=== PATIENT | female | born 1970 | race Caucasian/White ===

== ENCOUNTER 2018-11-30 | Inpatient (IN) | payer OTHER ==
[2018-11-30] VITALS (7 sets, daily range): BP systolic 95–120; BP diastolic 43–77
--- NOTE | ~2018-11-30 | PR ---
[place], [place] PROGRESS NOTE NAME: [facility] CHAVES [facility] [id number] UNIT #: [id number] ROOM: 520 DOCTOR: MAURICIO HENRY MD BIRTHDATE: [birth year] DOS: 12/01/2018 CARDIOLOGY PROGRESS NOTE SUBJECTIVE: The patient was seen at her bedside today. She is a 48-year-old woman who has a history of a factor V Leiden mutation. She has had 2 previous myocardial infarctions and has had stents placed in the past. She has also had a history of DVT. She chronically takes rivaroxaban 10 mg daily because of her factor V mutation. She states lately she has had increased leg pains as well as increased pleuritic chest pains. She presented to the hospital where a D-dimer was high at 0.93. A V/Q scan was indeterminant. Lower extremity venous ultrasound is negative. Her symptoms, however, are consistent with pulmonary embolism, and therefore, she is being treated with high dose rivaroxaban for PE management. She states that she still has pleuritic chest pain despite being on rivaroxaban for the last few days. She denies exertional pain, but states that she does not do much either. PHYSICAL EXAMINATION: VITAL SIGNS: Her pulse is 89 and regular, blood pressure is 124/64. She is afebrile. NECK: Supple. She has no jugular distention. Carotids are full. LUNGS: Respirations are unlabored. Chest is clear. She does have pleuritic pain when she takes a deep breath. HEART: Has a regular rhythm with an S4 gallop. ABDOMEN: Benign. EXTREMITIES: Showed no cyanosis or edema and she had no palpable cords. IMPRESSION: 1. History of coronary artery disease. 2. Atypical chest pain, myocardial infarction ruled out. 3. Factor V Leiden mutation. 4. Equivocal presentation for pulmonary embolism. Symptoms are not suggestive of an acute myocardial infarction. PLAN: I think that as soon as the CAT scan machine has been repaired that she should undergo a CT angiogram of the chest to help determine if she does have a recurrent or multiple pulmonary emboli. If that is negative, musculoskeletal pain is most likely, but given her history, she probably should have a stress test. We thank the hospitalist physicians for asking our advice regarding her care. [place], [place] PROGRESS NOTE NAME: REYNA CHAVES UNIT #: [id number] ROOM: [facility] DOCTOR: MAURICIO HENRY MD BIRTHDATE: [birth year] MAURICIO HENRY MD CM:PNTRANS [id number] MAURICIO HENRY MD 12/03/18 1359 interface
--- NOTE | ~2018-11-30 | CON ---
[place], [place] REPORT OF CONSULTATION NAME: REYNA CHAVES UNIT #: [id number] ROOM: 520 DOCTOR: JONY FREEMAN MD BIRTHDATE: [birth year] DOS: 11/30/2018 CARDIOLOGY CONSULTATION REASON FOR CONSULTATION: Chest pain. HISTORY OF PRESENT ILLNESS: The patient is a 48-year-old patient with history of coronary artery disease, factor V mutation, non-morbid obesity, presented to the Emergency Room for chest pain. Around 10:00 in the morning, she noted to have midsternal chest pain, which radiated towards her back and also to the left arm. The pain is a dull pain, which is worse with deep inspirations, but no associated nausea or diaphoresis. The patient took some sublingual nitro at home without any relief. She has history of myocardial infarction in the past and had a stent in 2016 in [place]. She takes Xarelto 10 mg for her factor V mutation with hypercoagulable state. She denies any fever and chills. No hemoptysis, no palpitation, no PND, no orthopnea. No nausea, vomiting, diarrhea. No bladder or bowel symptoms, no neurologic symptoms, no visual symptoms. She did complain of some discomfort in the right calf area. REVIEW OF SYSTEMS: Review of the 10 systems negative except as described above. PAST MEDICAL HISTORY: 1. Coronary artery disease with myocardial infarction in 2013 as well as 2016 with a stent in 2016. 2. Factor V mutation with hypercoagulable state. 3. Non-morbid obesity. 4. Asthma. PAST SURGICAL HISTORY: History of mastectomy, history of coronary stents. SOCIAL HISTORY: The patient does not drink alcohol, does not use drugs. The patient does smoke. FAMILY HISTORY: Mother has diabetes, hypertension, seizures; father from myocardial infarction. ALLERGIES: THE PATIENT IS ALLERGIC TO PENICILLIN AND IBUPROFEN AND TORADOL. HOME MEDICATIONS: Reviewed. Pertinent cardiac medications include aspirin, lisinopril, metoprolol, Xarelto and Ranexa. PHYSICAL EXAMINATION: VITAL SIGNS: Blood pressure 99/70, pulse 81, respiratory rate 20. Weight 87.6 kilos, BMI 34.2. GENERAL: Alert, comfortable, in no acute distress. HEENT: Pupils are round and equal. No jaundice. Tongue is moist and pharynx clear. CHEST: Symmetrical. Mild tenderness in the left upper chest area. LUNGS: Good air entry, clear to auscultation. HEART: Regular rhythm, no S3, no palpable thrills. [place], [place] REPORT OF CONSULTATION NAME: REYNA CHAVES UNIT #: [id number] ROOM: [facility] DOCTOR: JONY FREEMAN MD BIRTHDATE: [birth year] ABDOMEN: Benign, nontender. Bowel sounds normal. EXTREMITIES: Showed no edema. Distal pulses palpable. The patient has some mild discomfort in the right calf area, but no edema. SKIN: Warm and dry. No cyanosis, no clubbing. RECTAL: Deferred. GENITOURINARY: Deferred. NEUROLOGIC: The patient is alert, oriented. No focal neurologic deficit. LABORATORIES, IMAGING STUDIES AND EKG: Reviewed. EKG showed normal sinus rhythm with inferolateral nondiagnostic Q-waves. White cell count 11.3, hemoglobin 11.5, platelet 262, potassium 3.7, BUN 15, creatinine 1.22, and the troponins are negative x 3. The V/Q scan showed a moderate probability for pulmonary emboli. IMPRESSION: 1. Chest pain, atypical, myocardial infarction ruled out. 2. Coronary artery disease with history of myocardial infarction in 2013, myocardial infarction in 2016, status post 2.4 x 25 mm Promus drug-eluting stent to the right coronary artery in [place]. 3. Factor V mutation. 4. Intermediate probability V/Q scan for pulmonary emboli. 5. Hypertension. 6. Non-morbid obesity. 7. Tobacco use. RECOMMENDATIONS: 1. Her chest pains are atypical, pleuritic and myocardial infarction ruled out. EKG showed no acute ischemic changes. 2. V/Q scan showed intermediate probability for pulmonary emboli. Her Xarelto dose was changed to acute PE does. 3. Continue her home cardiac medications including aspirin, beta sofia, statin. 4. No further cardiac testing at this time. 5. Risk factor modification was discussed. 6. There is no family at bedside at the time of my examination. JONY FREEMAN MD CM:CONSTR:REPORT OF CONSULTATION [id number] 12/01/18 0251 interface
--- NOTE | ~2018-11-30 | EKG ---
[place], [place] ELECTROCARDIOGRAM REPORT NAME: REYNA CHAVES UNIT #: [id number] ROOM: 520 DOCTOR: RAJAN DRAFT REPORT BIRTHDATE: [birth year] 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
--- NOTE | ~2018-11-30 | EKG ---
[place], [place] ELECTROCARDIOGRAM REPORT NAME: REYNA CHAVES UNIT #: [id number] ROOM: 520 DOCTOR: RAJAN DRAFT REPORT BIRTHDATE: [birth year] [facility] Test Date: 2018-11-30 Test Time: 09:18:14 Pat Name: REYNA CHAVES Department: Room: 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
--- NOTE | ~2018-11-30 | EKG ---
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
--- NOTE | ~2018-11-30 | EKG ---
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
[2018-11-30] MEDS ORDERED: NITROSTAT0.4 MG SL (03:57)
[2018-11-30] MEDS ORDERED: SINGULAIR10 M1 PO (03:58)
[2018-11-30] MEDS ORDERED: ATORVASTATIN CA40 M1 PO (03:58)
[2018-11-30] MEDS ORDERED: ASPIRIN CHEWABL81 MG PO (03:58)
[2018-11-30 03:59] LABS: BASO % 0.4 % (0.0-1.0); EOS # 0.2 10*3/uL (0.0-0.4); EOS % 1.8 % (1.0-4.0); HEMOGLOBIN 11.5 g/dl (12.0-16.0); LYMPH # 3.9 10*3/uL (1.3-4.4); MEAN CELL VOLUME 82.4 fl (81.0-99.0); MEAN CORPUSCULAR HGB 26.3 pg (27.0-31.0); MEAN CORPUSCULAR HGB CONC 31.9 g/dl (33.0-37.0); MEAN PLATELET VOLUME 9.8 fl (9.6-12.3); MONO # 0.6 10*3/uL (0.1-1.0); MONO % 5.1 % (3.0-9.0); NEUT # 6.5 10*3/uL (2.3-7.9); NEUT % 57.3 % (47.0-73.0); PLATELET COUNT AUTOMATED 262 10*3/uL (130-400); RED BLOOD COUNT 4.37 10*6/uL (4.10-5.10); WHITE BLOOD COUNT 11.3 10*3/uL (4.8-10.8)
[2018-11-30] MEDS ORDERED: VITAMIN D5000 UNI1 PO (03:59)
[2018-11-30] MEDS ORDERED: NEURONTIN300 MG PO (03:59)
[2018-11-30] MEDS ORDERED: ZYPREXA5 M1 PO (04:00)
[2018-11-30] MEDS ORDERED: RANEXA500 M1 PO (04:00)
[2018-11-30] MEDS ORDERED: VISTARIL25 MG PO (04:00)
[2018-11-30] MEDS ORDERED: XARELTO10 MG PO (04:01)
[2018-11-30 04:09] LABS: ACT PARTIAL THROMBO TIME 23.5 SECONDS (20.8-31.5); INTERNATIONAL NORM RATIO 0.9 (2.0-3.5)
[2018-11-30 04:17] LABS: ALBUMIN 3.6 gm/dl (3.1-4.5); ALKALINE PHOSPHATASE 154 U/L (45-117); BUN 15 mg/dl (7-24); CHLORIDE 109 mmol/L (98-107); CREATININE 1.22 mg/dL (0.55-1.02); POTASSIUM 3.7 mmol/L (3.5-5.1); SGOT/AST 17 IU/L (3-35); SGPT/ALT 37 U/L (12-78); SODIUM 141 mmol/L (136-145); TOTAL PROTEIN 7.7 gm/dL (6.4-8.2)
[2018-11-30 04:19] LABS: TROPONIN I < 0.015 ng/ml (<0.045)
--- NOTE | 2018-11-30 04:50 | NUR ---
PT REQUESTS MORE PAIN MEDICATION.
[2018-11-30] MEDS ORDERED: MELATONIN3 MG PO (05:31)
[2018-11-30] MEDS ORDERED: MINIPRESS2 M1 PO (05:33)
--- NOTE | 2018-11-30 06:04 | NUR ---
A 48, admitted to , under the services of LINDSEY Lora DO with a diagnosis of CHEST PAIN. Chief complaint is CHEST PAIN. Patient arrived via bed from ER. Monitor applied. Initial assessment completed. Vital signs taken and recorded. LINDSEY LORA DO notified of admission to the unit. Orders received. See assessment for past medical history, medications and allergies. Patient and/or family oriented to unit. [facility]. Clothing/patient valuable form completed. NANY SULLIVAN
[2018-11-30] MEDS ORDERED: CYMBALTA60 MG PO (06:21)
--- NOTE | 2018-11-30 06:29 | NUR ---
MEDICATED WITH MS 2 MG SLOW IV PUSH FOR C/O MID-STERNAL CHEST PAIN RATED A 9/10.
--- NOTE | 2018-11-30 06:53 | NUR ---
MED REC UPDATED PER PATIENT AND MED CLAIM HISTORY
--- NOTE | 2018-11-30 06:57 | NUR ---
DR. HENRY PAGED AT THIS TIME
--- NOTE | 2018-11-30 09:03 | NUR ---
INFORMED THAT HOME MEDS NEED RECONCILED. SAID HE WOULD LOOK AT THEM. ALSO INFORMED HIM OF PTs PAIN RATED 8.5/10 DESPITE MORPHINE AT 0630. SAID HE WILL BE IN TO SEE THE PT SOON. NORCO GIVEN AT THIS TIME. WILL MONITOR FOR EFFECTIVENESS.
--- NOTE | 2018-11-30 09:29 | NUR ---
PT DOWN FOR LUNG SCAN.
--- NOTE | 2018-11-30 10:18 | NUR ---
PT BACK TO ROOM FROM TEST.
--- NOTE | 2018-11-30 10:49 | NUR ---
AND AWARE OF VQ SCAN RESULTS.
--- NOTE | 2018-11-30 10:53 | NUR ---
MIDSTERNAL PAIN RETURNED. PER PT, PAIN IS 8/10. MORPHINE GIVEN. CALL LIGHT IN REACH.
--- NOTE | 2018-11-30 11:36 | NUR ---
MORPHINE EFFECTIVE FOR COMPLAINTS PER PT.
--- NOTE | 2018-11-30 11:56 | NUR ---
INFORMATION PRINTED OUT AND GIVEN TO PT REGARDING PULMONARY EMBOLISM PER HER REQUEST.
--- NOTE | 2018-11-30 12:27 | NUR ---
PRN NORCO GIVEN FOR C/O PAIN RATED 6/10 TO MIDSTERNAL AREA. CALL LIGHT IN REACH.
--- NOTE | 2018-11-30 13:23 | NUR ---
NORCO EFFECTIVE PER PT, PAIN RATED 2/10. CALL LIGHT IN REACH.
[2018-11-30] MEDS ORDERED: TOPROL XL25 MG PO (15:01)
--- NOTE | 2018-11-30 16:24 | NUR ---
MORPHINE GIVEN FOR C/O CHEST PAIN RATED 10/10. CALL LIGHT IN REACH. VSS.
--- NOTE | 2018-11-30 17:01 | NUR ---
PER PT, MORPHINE WAS EFFECTIVE. PAIN RATED 5/10. CALL LIGHT IN REACH.
--- NOTE | 2018-11-30 17:50 | NUR ---
PT C/O LEFT KNEE PAIN/CRAMPING. STATES IT IS MORE SWOLLEN THAN EARLIER TODAY. ICE PACK PROVIDED FOR COMFORT. NOTIFIED. SAID HE WOULD COME TO SEE PT.
--- NOTE | 2018-11-30 18:29 | NUR ---
NORCO GIVEN FOR C/O KNEE AND CHEST PAIN RATED 7/10. CALL LIGHT IN REACH. VSS.
--- NOTE | 2018-11-30 20:43 | NUR ---
PRN MORPHINE GIVEN ORDERED FOR PATIENT C/O CHEST PAIN RATING A 8/10. PATIENT TOLERATED WELL, CALL LIGHT IS WITHIN REACH. WILL MONITOR EFFECT.
[2018-12-01] VITALS: BP 136/75
[2018-12-01 07:49] LABS: BASO % 0.5 % (0.0-1.0); EOS # 0.3 10*3/uL (0.0-0.4); EOS % 3.9 % (1.0-4.0); HEMATOCRIT 38.1 % (37.0-47.0); HEMOGLOBIN 11.9 g/dl (12.0-16.0); LYMPH # 2.7 10*3/uL (1.3-4.4); LYMPH % 34.2 % (27.0-41.0); MEAN CELL VOLUME 83.4 fl (81.0-99.0); MEAN CORPUSCULAR HGB CONC 31.2 g/dl (33.0-37.0); MEAN PLATELET VOLUME 9.9 fl (9.6-12.3); MONO # 0.5 10*3/uL (0.1-1.0); NEUT # 4.2 10*3/uL (2.3-7.9); NEUT % 54.1 % (47.0-73.0); PLATELET COUNT AUTOMATED 238 10*3/uL (130-400); RED BLOOD COUNT 4.57 10*6/uL (4.10-5.10); WHITE BLOOD COUNT 7.7 10*3/uL (4.8-10.8)
[2018-12-01 08:00] VITALS: BP 124/64
[2018-12-01 08:03] LABS: ACT PARTIAL THROMBO TIME 26.4 SECONDS (20.8-31.5)
[2018-12-01 08:20] LABS: BUN 14 mg/dl (7-24); CHLORIDE 106 mmol/L (98-107); CHOLESTEROL 127 mg/dL (<200); CREATININE 0.99 mg/dL (0.55-1.02); PHOSPHOROUS 4.2 mg/dL (2.5-4.9); POTASSIUM 4.1 mmol/L (3.5-5.1); SODIUM 137 mmol/L (136-145); TRIGLYCERIDES 221 mg/dl (<150); VLDL CHOLESTEROL 44 mg/dL (6-40)
[2018-12-01 08:28] LABS: HDL CHOLESTEROL 30 mg/dl (40-60); LDL CHOLESTEROL 53 mg/dL (9-159)
[2018-12-01 10:11] LABS: VITAMIN D, 25-HYDROXY 43.6 ng/mL (30-100)
[2018-12-01 12:00] VITALS: BP 105/62
--- NOTE | 2018-12-01 12:01 | NUR ---
Preparation Plant Supervisor in to talk to patient. Patient states lives at HOME with ALONE. There are SEVERAL steps in the home. Physician: NONE AT THIS TIME Pharmacy: [facility] Home health services: NONE Patient's level of ADLs: INDEPENDENT Patient has working utilities: YES DME: [facility] Follow-up physician's appointment after d/c: WILL BE MADE BY HOSPITALIST NURSE DIRECTOR ON DISCHARGE Does patient want to access PORTAL?: NO Discharge plan PT STATES SHE LIVES ALONE AND IS WORKING WITH HER COMPUTER FORENSIC SPECIALIST FROM INSURANCE TO GET AIDS FOR ASSISTANCE AT HOME. STATES EVERYTHING IS IN THE WORKS AND SHE HAS NO OTHER NEEDS AT THIS TIME. WILL CONTINUE TO FOLLOW.. KILEY MEADOWS
[2018-12-01 16:00] VITALS: BP 113/74
[2018-12-01 20:00] VITALS: BP 107/61
--- NOTE | 2018-12-01 23:40 | NUR ---
2200 MEDICATIONS GIVEN AT THIS TIME WELL PRN NORCO AND MORPHINE FOR CHEST PAIN RATING A 10/10. PATIENT TOLERATED WELL, CALL LIGHT IS WITHIN REACH.
[2018-12-02] VITALS: BP 123/67
--- NOTE | 2018-12-02 01:58 | NUR ---
PATIENT IS SLEEPING WITH EASY AND REGULAR RESPERS ON ROOM AIR. CALL LIGHT IS WITHIN REACH.
--- NOTE | 2018-12-02 03:12 | NUR ---
SPOKE WITH DR. SIMON REGARDING [facility] BEAT RUN OF [facility], SEE NEW ORDERS.
--- NOTE | 2018-12-02 03:18 | NUR ---
SPOKE WITH JAMAL REGARDING CARDIOLOGY CONSULT. AWAITING CALL BACK.
--- NOTE | 2018-12-02 03:21 | NUR ---
SPOKE WITH DR. FREEMAN REGARDING 21 BEAT RUN OF VTA. INFORMED HIM OF CTA CHEST RESULTS. NO NEW ORDERS AT THIS TIME.
[2018-12-02 08:00] VITALS: BP 113/66
[2018-12-02 08:55] VITALS: BP 112/60
--- NOTE | 2018-12-02 09:01 | NUR ---
MEDICATED WITH PRN PO NORCO FOR MIDSTERNAL CHEST PAIN.
--- NOTE | 2018-12-02 10:06 | NUR ---
PRN PO NORCO EFFECTIVE FOR SHORT TIME.
[2018-12-02] MEDS ORDERED: AVPAK AZITHROM250 M1 PO (11:13)
--- NOTE | 2018-12-02 11:58 | NUR ---
MEDICATED WITH PRN IV MORPHINE FOR CHEST PAIN.
--- NOTE | 2018-12-02 12:42 | NUR ---
PATIENT DISCHARGED TO FRONT LOBBY BY WHEELCHAIR WITH FOR TRANSPORT HOME BY PRIVATE VEHICLE.
== END 2018-12-02 12:42 | disposition home or self-care (01) | DRG 205 ==
PROVIDERS: Emergency Medicine; Student in an Organized Health Care Education/Training Program; ADMIT Internal Medicine
DX: M94.0 Chondrocostal junction syndrome [Tietze] (principal); N17.0 Acute kidney failure with tubular necrosis; D68.2 Hereditary deficiency of other clotting factors; D64.9 Anemia, unspecified; E87.8 Other disorders of electrolyte and fluid balance, not elsewhere classified; F17.200 Nicotine dependence, unspecified, uncomplicated; G62.9 Polyneuropathy, unspecified; R73.9 Hyperglycemia, unspecified; J45.909 Unspecified asthma, uncomplicated; Z71.6 Tobacco abuse counseling; Z88.0 Allergy status to penicillin; Z88.5 Allergy status to narcotic agent; Z79.82 Long term (current) use of aspirin; Z79.899 Other long term (current) drug therapy; I25.2 Old myocardial infarction; Z85.3 Personal history of malignant neoplasm of breast; Z95.5 Presence of coronary angioplasty implant and graft; Z90.10 Acquired absence of unspecified breast and nipple; Z83.3 Family history of diabetes mellitus; Z82.49 Family history of ischemic heart disease and other diseases of the circulatory system; Z86.718 Personal history of other venous thrombosis and embolism